=== PATIENT | male | born 1990 | race Caucasian/White ===

== ENCOUNTER 2016-05-10 00:08 | Emergency (ER) | payer OTHER ==
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
[2016-05-10] MEDS ORDERED: Ondansetron 2 mg/mL 2 mL Inj IVPUSH PRN (00:15)
[2016-05-10 00:19] VITALS: BP 138/83; PULSE 89; RESP 16; O2SAT 94
[2016-05-10] MEDS ORDERED: Ammonia Aromatic Inhalant Ampule INHALATION ONE (00:20)
[2016-05-10] MEDS: 0.9% Sodium Chloride 1,000 ML IV SCH ×2 (00:25→01:41)
[2016-05-10] MEDS ORDERED: Ketamine 100 mg/mL 5 mL Inj ONE (00:27)
[2016-05-10 00:28] LABS: BASOPHILS % (AUTO) 0.7 % (0-3); EOSINOPHILS % (AUTO) 1.1 % (0-5); MONOCYTES % (AUTO) 9.3 % (4-12); Mean Corpuscular Hemoglobin 29.9 pg (27.0-35.0); Mean Corpuscular Volume 83.9 fL (81-100); NEUTROPHILS % (AUTO) 58.3 % (40-74); Platelet Count 380 bil/L (150-400)
[2016-05-10] MEDS ORDERED: Ketamine 100 mg/mL 5 mL Inj IV ONE (00:45)
[2016-05-10 01:37] VITALS: BP 119/61; PULSE 88; RESP 17; O2SAT 98
[2016-05-10] MEDS ORDERED: _Ondansetron ODT 4 mg Tablet PO PRN (02:50)
== END 2016-05-10 03:12 | disposition home or self-care (01) ==
LOC: SED 00:08
DX: F10.120 Alcohol abuse with intoxication, uncomplicated (principal); Y90.7 Blood alcohol level of 200-239 mg/100 ml
CPT/HCPCS: 80053; 85025; 94799; 96361; 96374; 96375; 99285; J2405; J7030

== ENCOUNTER 2016-08-18 23:56 | Emergency (ER) | payer OTHER ==
[~2016-08-18] VITALS: Ht 180.3 cm; Wt 81.8 kg
[2016-08-18 23:58] VITALS: BP 134/79; PULSE 110; RESP 16; O2SAT 99
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
[2016-08-19] MEDS ORDERED: Lidocaine 1%/Epi 1:100,000 30 mL MDV INFILTRATE ONE (01:05)
[2016-08-19] MEDS ORDERED: HYDROmorphone 1 mg/mL Inj IVPUSH ONE (01:05)
[2016-08-19] MEDS ORDERED: Lidocaine 1%-Epi 1:100,000 50 mL Inj NERVEBLOCK ONE (01:05)
[2016-08-19 01:36] LABS: BASOPHILS % (AUTO) 0.4 % (0-3); EOSINOPHILS % (AUTO) 1.6 % (0-5); MONOCYTES % (AUTO) 11.4 % (4-12); Mean Corpuscular Hemoglobin 29.9 pg (27.0-35.0); Mean Corpuscular Volume 85.4 fL (81-100); NEUTROPHILS % (AUTO) 77.2 % (40-74); Platelet Count 243 bil/L (150-400)
[2016-08-19] MEDS ORDERED: Clindamycin Inj 900 MG in IV Premix 1 EACH IV ONE (01:40)
[2016-08-19] MEDS ORDERED: _oxyCODONE/APAP 5-325 mg Tablet PO PRN (01:45)
[2016-08-19 02:58] VITALS: BP 108/64; PULSE 68; RESP 14; O2SAT 97
[2016-08-19] MEDS ORDERED: Sodium Chloride LOK Flush 10 mL Syringe IVFLUSH SCH (08:30)
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
== END 2016-08-19 03:03 | disposition home or self-care (01) ==
LOC: SED 23:56
DX: M71.162 Other infective bursitis, left knee (principal); W19.XXXA Unspecified fall, initial encounter; Y93.9 Activity, unspecified; Y92.9 Unspecified place or not applicable; Y99.8 Other external cause status
CPT/HCPCS: 20610; 36415; 73562; 80053; 85025; 86140; 87040; 87070; 87075; 87077; 87186; 87205; 96365; 96375; 99284; J1170; J1885; J3490